=== PATIENT | female | born 1980 | race African-American/Black ===

== ENCOUNTER 2016-07-24 23:18 | Emergency (ER) | payer OTHER ==
[~2016-07-24] VITALS: Ht 165.1 cm; Wt 72.7 kg
[2016-07-24 23:22] VITALS: Ht 165.1 cm; Wt 72.7 kg
[2016-07-24] MEDS ORDERED: SOD CHLORIDE 0.9% 1,000 ML IV STA (23:36)
[2016-07-24] MEDS ORDERED: ONDANSETRON 4 MG INJ IV STA (23:36)
[2016-07-24] MEDS ORDERED: morphine 4 MG/ML VIAL IV STA (23:36)
--- NOTE | 2016-07-24 23:45 | ERD ---
ER Documentation Chief Complaint Date/Time DATE: 07/24/16 TIME: 23:42 Chief Complaint MID AP AFTER EATING DINNER AT 8PM DENIES N/V HPI 36-year-old otherwise healthy female presents to the emergency department complaining of sudden onset 10 out of 10 diffuse abdominal pain which began this morning. Patient states the pain has remained constant and extends her entire abdomen and low into her pelvis. Patient states she has an IUD which was placed 8 years ago. Patient states her menstrual period is due this week but denies prior history of intense pain associated with her period. Patient states the pain is better when laying down and worse when up and walking. She has not attempted to treat her pain at home with any medication thus far. Patient denies any fever, chills, vomiting, diarrhea. Last bowel movement was 2 days ago and normal for her. ROS All systems reviewed and are negative except as per history of present illness. Medications Home Meds Active Scripts Cephalexin* (Keflex*) 500 Mg Capsule, 500 MG PO TID for 7 Days, CAP Prov:KELECHI CALDERON PA-C 07/25/16 Ondansetron (Ondansetron Odt) 4 Mg Tab.rapdis, 4 MG PO Q6H Y for NAUSEA AND/OR VOMITING, #10 TAB Prov:KELECHI CALDERON PA-C 07/25/16 Naproxen* (Naprosyn*) 500 Mg Tablet, 500 MG PO BID for 14 Days, TAB Prov:KELECHI CALDERON PA-C 07/25/16 Hydrocodone/Acetaminophen ([place] 5-325 Tablet) 1 Each Tablet, 1 EACH PO Q8, #14 TAB Prov:KELECHI CALDERON PA-C 07/25/16 Discontinued Scripts Cetirizine Hcl* (Cetirizine Hcl*) 5 Mg Tab.chew, 2.5 MG PO DAILY, #30 TAB Prov:KELECHI CALDERON PA-C 07/25/16 Ibuprofen (MOTRIN LIQUID (PED)) 20 Mg/Ml Susp, 70 MG PO Q6H Y for PAIN, #160 ML Prov:KELECHI CALDERON PA-C 07/25/16 Olopatadine* (Pataday*) 0.2% - 2.5 Ml Drops, 1 DROP BOTH EYES DAILY for 7 Days, EA Prov:KELECHI CALDERON PA-C 07/25/16 Allergies Allergies: Coded Allergies: morphine (Verified Allergy, Mild, 07/24/16) PMhx/Soc Medical and Surgical Hx: pt denies Medical Hx History of Surgery: Yes (csection x 1) Hx Alcohol Use: No Hx Substance Use: No Hx Tobacco Use: No Smoking Status: Never smoker Physical Exam Vitals Vital Signs Date Time Temp Pulse Resp B/P Pulse Ox O2 Delivery O2 Flow Rate FiO2 07/25/16 04:37 99.1 81 18 98/53 98 Room Air 07/24/16 23:22 98.0 83 20 115/57 100 Physical Exam Const: Well-developed, well-nourished, no acute distress Head: Atraumatic Eyes: Normal Conjunctiva ENT: Normal External Ears, Nose and Mouth. Neck: Full range of motion..~ No meningismus. Resp: Clear to auscultation bilaterally Cardio: Regular rate and rhythm, no murmurs Abd: Soft, diffusely tender, non distended. Normal bowel sounds Skin: No petechiae or rashes Back: No midline or flank tenderness Ext: No cyanosis, or edema Neur: Awake and alert Psych: Normal Mood and Affect Result Diagram: 07/24/16 2354 07/24/16 2354 Results 24 hrs Laboratory Tests Test 07/24/16 23:54 07/25/16 00:01 White Blood Count 5.010^3/ul Red Blood Count 3.8310^6/ul Hemoglobin 13.5g/dl Hematocrit 39.4% Mean Corpuscular Volume 102.9fl Mean Corpuscular Hemoglobin 35.2pg Mean Corpuscular Hemoglobin Concent 34.3g/dl Red Cell Distribution Width 13.2% Platelet Count 80977^3/UL Mean Platelet Volume 8.9fl Neutrophils % 60.9% Lymphocytes % 31.1% Monocytes % 6.8% Eosinophils % 0.8% Basophils % 0.2% Nucleated Red Blood Cells % 0.0/100WBC Neutrophils # 3.010^3/ul Lymphocytes # 1.610^3/ul Monocytes # 0.310^3/ul Eosinophils # 0.010^3/ul Basophils # 0.010^3/ul Nucleated Red Blood Cells # 0.010^3/ul Sodium Level 139mmol/L Potassium Level 4.1mmol/L Chloride Level 104mmol/L Carbon Dioxide Level 26mmol/L Anion Gap 13 Blood Urea Nitrogen 11mg/dl Creatinine 0.81mg/dl Glucose Level 112mg/dl Calcium Level 8.8mg/dl Total Bilirubin 0.2mg/dl Direct Bilirubin 0.00mg/dl Indirect Bilirubin 0.2mg/dl Aspartate Amino Transf (AST/SGOT) 19IU/L Alanine Aminotransferase (ALT/SGPT) 21IU/L Alkaline Phosphatase 89IU/L Total Protein 7.6g/dl Albumin 4.0g/dl Globulin 3.60g/dl Albumin/Globulin Ratio 1.11 Lipase 43U/L Serum HCG, Qualitative NEGATIVE Urine Color LT. YELLOW Urine Clarity CLOUDY Urine pH 8.0 Urine Specific [place] 1.015 Urine Ketones 15 Urine Nitrite NEGATIVE Urine Bilirubin NEGATIVE Urine Urobilinogen 0.2 E.U./dL Urine Leukocyte Esterase 1+ Urine Microscopic RBC NONE SEEN/HPF Urine Microscopic WBC 2-5/HPF Urine Squamous Epithelial Cells OCCASIONAL Urine Amorphous Phosphates MANY Urine Bacteria FEW Urine Hemoglobin NEGATIVE Urine Glucose NEGATIVE% Urine Total Protein NEGATIVE Current Medications Medications (Trade) Dose Ordered Sig/Quang Route PRN Reason Start Time Stop Time Status Last Admin Dose Admin Sodium Chloride (NS) 1,000 ml @ 1,000 mls/hr Q1H STAT IV 07/24/16 23:36 07/25/16 00:35 DC 07/25/16 00:05 Morphine Sulfate (morphine) 4 mg ONCE STAT IV 07/24/16 23:36 07/24/16 23:39 DC 07/25/16 00:07 Ondansetron HCl (Zofran Inj) 4 mg ONCE STAT IV 07/24/16 23:36 07/24/16 23:39 DC 07/25/16 00:07 Diphenhydramine HCl (Benadryl) 25 mg ONCE ONCE IV 07/25/16 00:00 07/25/16 00:01 DC 07/25/16 00:07 Morphine Sulfate (morphine) 4 mg ONCE STAT IV 07/25/16 01:08 07/25/16 01:09 DC 07/25/16 01:15 Diphenhydramine HCl (Benadryl) 25 mg ONCE ONCE IV 07/25/16 01:30 07/25/16 01:31 DC 07/25/16 01:15 Ondansetron HCl (Zofran Inj) 4 mg ONCE STAT IV 07/25/16 01:08 07/25/16 01:09 DC 07/25/16 01:15 Procedures/MDM PROCEDURE: CT Abdomen and Pelvis without contrast. CLINICAL INDICATION: Pain. TECHNIQUE: CT scan of the abdomen and pelvis was performed on a multidetector slice CT scanner. No intravenous contrast material was utilized. Sagittal and coronal reformatted images were obtained from the axial source images. Images were reviewed on a high-resolution PACS workstation. Exam CTDlvol = 9 mGy and DLP = 469 Gy-cm. One of the following 3 dose reduction techniques were used: Automated exposure control; adjustment of the mA and/or kV according to patient size; or use of iterative reconstruction technique. COMPARISON: None. FINDINGS: Study limited by lack of IV and oral contrast material. There is no obstruction or ileus. The appendix is not distinctly visualized.. There is no evidence for diverticulitis. There is a small amount of pelvic free fluid. There is a ill-defined 3.0 x 2.7 cm rounded soft tissue density in the anterior aspect of the mid left pelvis adjacent to several loops of bowel. The soft tissue density is anterior superior to the urinary bladder. The uterus is deviated to the right with an IUD. The ovaries are not distinctly visualized. The left pelvic structure may represent the left ovary although slightly distant from expected location. The liver is enlarged and 19 cm length.. No intrahepatic lesions are identified. The gallbladder is normal in appearance. There is no definite biliary ductal dilation. Pancreas is normal in appearance. The spleen is unremarkable.. There are no adrenal masses. The aorta is normal caliber. There is a punctate nonobstructing calcification lower pole of the left kidney. Kidneys are otherwise normal in appearance without hydronephrosis, mass or obstructing calculus. There is no perinephric collection. Ureters are of normal caliber and without evidence for an obstructing calculus. The urinary bladder is partially contracted.. Limited evaluation lung bases is unremarkable. The bones are unremarkable. IMPRESSION: 1. Examination limited by lack of contrast material. 2. Left pelvic ill-defined rounded soft tissue structure which does not appear to be bowel. This may represent an abnormal left ovary, possibly inflamed/ infection, although slightly distant from the uterus which is deviated to the right. Recommend correlation with pelvic ultrasound. 3. Small amount of pelvic free fluid. 4. IUD within the uterus. 5. Nonobstructing left renal calcification. No definite obstructive uropathy. 6. Abundant stool throughout the colon. No definite obstruction or ileus. RPTAT: HMVK .Caleb Hodge MD, MD Date Time Electronically viewed and signed by .Caleb Hodge MD, MD on 07/25/2016 02:16 .K/ CC: KELECHI CALDERON PA-C PROCEDURE: ULTRASOUND PELVIS CLINICAL INDICATION: 36-year-old female with pelvic pain. TECHNIQUE: Multiple sonographic images of the pelvis were obtained utilizing a transabdominal and endovaginal technique. The images were reviewed on a PACS workstation. COMPARISON: CT abdomen/pelvis July 25, 2016. FINDINGS: The uterus is visualized and measures 7.8 x 4.4 x 5.6 cm. There is an intrauterine device within the endometrial canal. The endometrial echo complex is within normal limits and measures 5.1 mm. There is mild free fluid within the cul-de-sac. The right ovary has a normal echotexture and measures 3.2 x 1.9 x 2.1 cm. The left ovary has a normal echotexture and measures 3.6 x 2.3 x 2 point a cm. There is flow identified within the ovaries bilaterally. No adnexal masses are noted. IMPRESSION: 1. Mild pelvic free fluid. 2. Intrauterine device. .Joselo Fonseca MD, MD Date Time Electronically viewed and signed by .Joselo Fonseca MD, MD on 07/25/2016 04:15 .M/ CC: KELECHI CALDERON PA-C Otherwise healthy 36-year-old female who presents for sudden onset diffuse abdominal pain since today with associated nausea. Vital signs reviewed. Patient was afebrile, non-tachycardic and normotensive upon arrival. CBC showed no evidence of systemic infection or severe anemia. CMP showed no evidence of electrolyte abnormalities, severe acidosis, alkalosis , renal failure, or liver disease. Lipase showed no evidence of acute pancreatitis. UA with evidence of 2+ leukoesterase. Negative for nitrites. Blood hCG test was negative. Patient received a bolus of fluids as well as pain medication while in the emergency department and reports improvement of symptoms. At this time I have low suspicion for ectopic , ovarian torsion, small bowel obstruction, diverticulitis, pancreatitis, cholecystitis, or other acute abdomen. Physical exam and diagnostic workup consistent with urinary tract infection and abdominal pain of unknown etiology although possibly due to etiology such as UTI , ovarian cysts, renal calculi, perimenstrual cramping or constipation. Patient to follow-up with primary care and [facility] specialist to closely monitor the ovarian adjacent soft tissue identified on CT scan. Based on patient's history of present illness and physical examination the decision was made to discharge. The patient was re-evaluated after ED treatment and stabilizing measures, and symptoms have improved. There is no evidence of life threatening injuries or illnesses at this time. On re-examination, patient resting in no distress, stable vital signs, reports feeling better and safe for discharge with outpatient follow up with PMD in 1-2 days. Patient given return precautions. Departure Diagnosis: Primary Impression: Abdominal pain Abdominal location: generalized Qualified Code: R10.84 - Generalized abdominal pain Additional Impressions: Renal calcification Free fluid in pelvis IUD (intrauterine device) in place UTI (urinary tract infection) Urinary tract infection type: site unspecified Hematuria presence: without hematuria Qualified Code: N39.0 - Urinary tract infection without hematuria, site unspecified KELECHI CALDERON PA-C Jul 24, 2016 23:45
[2016-07-25 00:03] LABS: ADD SCAN DIFF NO
[2016-07-25 00:05] LABS: BASOPHILS % 0.2 % (0.0-2.0); EOSINOPHILS % 0.8 % (0.0-7.0); HEMATOCRIT 39.4 % (37.0-47.0); HEMOGLOBIN 13.5 g/dl (12.0-16.0); LYMPHOCYTES # 1.6 10^3/ul (0.8-2.9); LYMPHOCYTES % 31.1 % (15.0-51.0); MEAN CORPUSCULAR HEMOGLOBIN 35.2 pg (29.0-33.0); MEAN CORPUSCULAR HGB CONC 34.3 g/dl (32.0-37.0); MEAN CORPUSCULAR VOLUME 102.9 fl (82.0-101.0); MEAN PLATELET VOLUME 8.9 fl (7.4-10.4); MONOCYTE # 0.3 10^3/ul (0.3-0.9); MONOCYTES % 6.8 % (0.0-11.0); NEUTROPHILS % 60.9 % (39.0-77.0); PLATELET COUNT 202 10^3/UL (140-415); RED BLOOD COUNT 3.83 10^6/ul (4.20-5.40); RED CELL DISTRIBUTION WIDTH 13.2 % (11.5-14.5)
[2016-07-25 00:18] LABS: ALBUMIN/GLOBULIN RATIO 1.11; BILIRUBIN,INDIRECT 0.2 mg/dl (0-1.1); BILIRUBIN,TOTAL 0.2 mg/dl (0.2-1.3); CALCIUM 8.8 mg/dl (8.4-10.2); CREATININE 0.81 mg/dl (0.44-1.00); POTASSIUM 4.1 mmol/L (3.5-5.1); TOTAL PROTEIN 7.6 g/dl (6.1-8.1)
[2016-07-25 00:26] LABS: ADD UMIC YES; URINE BILIRUBIN (Dip) NEGATIVE (NEGATIVE); URINE BLOOD (Dip) NEGATIVE (NEGATIVE); URINE COLOR LT. YELLOW (YELLOW); URINE GLUCOSE (Dip) NEGATIVE (NEGATIVE); URINE KETONES (Dip) 15 (NEGATIVE); URINE LEUKOCYTE ESTERASE (Dip) 1+ (NEGATIVE); URINE NITRITE (Dip) NEGATIVE (NEGATIVE); URINE TOTAL PROTEIN (Dip) NEGATIVE (NEGATIVE); URINE UROBILINOGEN (Dip) 0.2 E.U./dL (0.1-1.0)
[2016-07-25 00:34] LABS: SQUAMOUS EPITHELIAL CELL,UR OCCASIONAL; URINE RBCS NONE SEEN /HPF ([, 0])
[2016-07-25 00:35] LABS: BACTERIA,URINE FEW
[2016-07-25] MEDS ORDERED: ONDANSETRON 4 MG INJ IV STA (01:08)
[2016-07-25] MEDS ORDERED: morphine 4 MG/ML VIAL IV STA (01:08)
[2016-07-25] MEDS ORDERED: OLOP2.5D BOTH EYES (01:10)
[2016-07-25] MEDS ORDERED: MOTS PO (01:10)
[2016-07-25] MEDS ORDERED: CETI5TAB8 PO (01:10)
[2016-07-25] MEDS ORDERED: DIPHENHYDRAMINE 50 MG INJ IV ONE ×2 (01:30)
--- NOTE | 2016-07-25 02:16 | RADRPT ---
PROCEDURE: CT Abdomen and Pelvis without contrast. CLINICAL INDICATION: Pain. TECHNIQUE: CT scan of the abdomen and pelvis was performed on a multidetector slice CT scanner. No intravenous contrast material was utilized. Sagittal and coronal reformatted images were obtained fr om the axial source images. Images were reviewed on a high-resolution PACS workstation. Exam CTDlvol = 9 mGy and DLP = 469 Gy-cm. One of the following 3 dose reduction techniques were used: Automated exposure control; adjustment of the mA and/or kV according to patient size; or use of iterative tapan nstruction technique. COMPARISON: None. FINDINGS: Study limited by lack of IV and oral contrast material. There is no obstruction or ileus. The appendix is not distinctly visualized.. There is no evidence for diverticulitis. There is a small amount of pelvic free fluid. There is a ill-defined 3.0 x 2.7 c m rounded soft tissue density in the anterior aspect of the mid left pelvis adjacent to several loop s of bowel. The soft tissue density is anterior superior to the urinary bladder. The uterus is dev iated to the right with an IUD. The ovaries are not distinctly visualized. The left pelvic structur e may represent the left ovary although slightly distant from expected location. The liver is enlarged and 19 cm length.. No intrahepatic lesions are identified. The gallbladder is normal in appearance. There is no definite biliary ductal dilation. Pancreas is normal in appearance . The spleen is unremarkable.. There are no adrenal masses. The aorta is normal caliber. There is a punctate nonobstructing calcification lower pole of the left kidney. Kidneys are otherwi se normal in appearance without hydronephrosis, mass or obstructing calculus. There is no perinephri c collection. Ureters are of normal caliber and without evidence for an obstructing calculus. The u rinary bladder is partially contracted.. Limited evaluation lung bases is unremarkable. The bones are unremarkable. IMPRESSION: 1. Examination limited by lack of contrast material. 2. Left pelvic ill-defined rounded soft tissue structure which does not appear to be bowel. This m ay represent an abnormal left ovary, possibly inflamed/infection, although slightly distant from the uterus which is deviated to the right. Recommend correlation with pelvic ultrasound. 3. Small amount of pelvic free fluid. 4. IUD within the uterus. 5. Nonobstructing left renal calcification. No definite obstructive uropathy. 6. Abundant stool throughout the colon. No definite obstruction or ileus. RPTAT: HMVK .Caleb Hodge MD, Date Time Electronically viewed and signed by .Caleb Hodge MD, MD on 07/25/2016 02:16 .K/
--- NOTE | 2016-07-25 04:16 | RADRPT ---
PROCEDURE: ULTRASOUND PELVIS CLINICAL INDICATION: 36-year-old female with pelvic pain. TECHNIQUE: Multiple sonographic images of the pelvis were obtained utilizing a transabdominal and endovaginal technique. The images were reviewed on a PACS workstation. COMPARISON: CT abdomen/pelvis July 25, 2016. FINDINGS: The uterus is visualized and measures 7.8 x 4.4 x 5.6 cm. There is an intrauterine device within the endometrial canal. The endometrial echo complex is within normal limits and measures 5.1 mm. There is mild free fluid within the cul-de-sac. The right ovary has a normal echotexture and measures 3. 2 x 1.9 x 2.1 cm. The left ovary has a normal echotexture and measures 3.6 x 2.3 x 2 point a cm. T here is flow identified within the ovaries bilaterally. No adnexal masses are noted. IMPRESSION: 1. Mild pelvic free fluid. 2. Intrauterine device. .Joselo Fonseca MD, MD Date Time Electronically viewed and signed by .Joselo Fonseca MD, on 07/25/2016 04:15 .M/
[2016-07-25] MEDS ORDERED: ONDA4TAB14 PO (04:23)
[2016-07-25] MEDS ORDERED: HYDR-906 PO (04:23)
[2016-07-25] MEDS ORDERED: NAPR-260 PO (04:23)
[2016-07-25] MEDS ORDERED: CEPH-443 PO (04:36)
[2016-07-25 04:37] VITALS: BP 98/53; PULSE 81; RESP 18; TEMP 99.1
== END 2016-07-25 04:37 | disposition home or self-care (01) ==
LOC: FTE 23:18
DX: R10.84 Generalized abdominal pain (principal); N28.89 Other specified disorders of kidney and ureter; N73.8 Other specified female pelvic inflammatory diseases; N39.0 Urinary tract infection, site not specified; R10.2 Pelvic and perineal pain; Z97.5 Presence of (intrauterine) contraceptive device
CPT/HCPCS: 36415; 74176; 76830; 76856; 80053; 81001; 83690; 84703; 85025; 96374; 96375; 96376; J1200; J2270; J2405; J7030; Z7502; 81003